=== PATIENT | female | born 1965 | race Two or more races ===

== ENCOUNTER 2020-03-17 08:32 | Emergency (ER) | payer OTHER ==
[~2020-03-17] VITALS: Ht 157.5 cm; Wt 74.8 kg
[2020-03-17] MEDS ORDERED: OMEGA 3 1,0001 EACH (08:40)
[2020-03-17] MEDS ORDERED: CARAFATE1 GM PO (14:25)
[2020-03-17] MEDS ORDERED: PROTONIX20 MG PO (14:25)
== END 2020-03-17 14:33 | disposition home or self-care (01) ==
LOC: ER 08:32
DX: K29.80 Duodenitis without bleeding (principal); K29.70 Gastritis, unspecified, without bleeding; K21.9 Gastro-esophageal reflux disease without esophagitis